=== PATIENT | female | born 1990 | race Caucasian/White ===

== ENCOUNTER → 2020-01-09 | Outpatient (CLI) | payer OTHER ==
[~2020-01-09] MED LIST: MOTRIN 800800 MG/TAB PO; PRENATAL VITAMI1 TA3 PO; ZOLOFT 50MG50 MG PO
== END ==
LOC: ZCOL.LAB 15:59
DX: J02.9 Acute pharyngitis, unspecified (principal); Z20.828 Contact with and (suspected) exposure to other viral communicable diseases

== ENCOUNTER 2020-01-28 14:25 | Inpatient (IN) | payer BC ==
[2020-01-28] VITALS (34 sets, daily range): BP systolic 101–144; BP diastolic 56–82; PULSE 77–130; TEMP 97.7–98.7
[~2020-01-28] VITALS: Ht 185.4 cm; Wt 101.8 kg
--- NOTE | 2020-01-28 14:30 | NUR ---
Pt arrives on unit ambulatory with spouse. States sweeping of membranes performed and has leaking fluid since 01/28/2020 with bloody show. Denies regular ctx and decreased FM. Changed into clean gown. EFM and toco applied. VSS. Amniotest inconclusive with bloody show noted. SVE per this RN /-2. Dr. Alston on unit. Orders for ROM. Admission asessment completed. Pt updated on POC. Bed locked in low position. Call light within reach. No questions or concerns at this time.
[2020-01-28] MEDS ORDERED: PRENATAL VITAMI1 TA3 PO (14:47)
[2020-01-28] MEDS ORDERED: ZOLOFT 50MG50 MG PO (14:47)
[2020-01-28 16:32] LABS: BASO % 0.3 % (0.0-2.0); EOS # 0.1 (0.0-0.7); EOS % 0.6 % (0-4.0); GRAN # 7.4 (1.4-6.5); GRAN % 73.3 % (42.2-75.2); HEMATOCRIT 37.9 % (37.0-47.0); HEMOGLOBIN 12.9 g/dl (12.5-16.0); LYMPH # 1.8 (1.2-3.4); LYMPH % 17.6 % (20.0-51.0); MEAN CELL VOLUME 91 fl (80.0-100.0); MEAN CORPUSCULAR HEMOGLOBIN 31 pg (27.0-31.0); MEAN CORPUSCULAR HGB CONC 34 g/dl (33.0-37.0); MEAN PLATELET VOLUME 11.1 fl (7.4-10.4); MONO # 0.8 (0.1-0.6); MONO % 7.9 % (1.7-9.3); PLATELET COUNT 221 K/mm3 (130-400); RED BLOOD COUNT 4.18 M/mm3 (4.10-5.30); REDCELL DISTRIBUTION WIDTH-CV 12.5 % (11.5-14.5)
--- NOTE | 2020-01-28 17:15 | NUR ---
1655: Patient up to bathroom, voids without difficulty. 1700: Patient returns to bed, sitting at edge of bed for epidural placement. Emil PATIENT DAY COORDINATOR at bedside. 1706: Lidocaine. Single Shot given by Emil BOCANEGRA, no adverse reaction noted. 1707: Epidural Catheter placed. 1715: Patient repositioned to left tilt with peanut ball in place. Will continue to monitor. Call light within reach.
--- NOTE | 2020-01-28 17:25 | NUR ---
Patient calls out stating she is still hurting with contractions. Patient pushes epidural button. Will continue to monitor. Call light within reach.
--- NOTE | 2020-01-28 23:00 | NUR ---
2203- RN to bedside, SVE complete and 0 station. Pt. begins practice pushing. RN remains at bedside. 2223- Provider notified that patient is ready for delivery. 2225- FHT noted to be in the 90s range. Maternal O2 saturation placed on and remains on. RN remains at bedside. All staff notified of FHT and delivery. 2226- Pitocin turned off and regalado taken out with 350 of clear yellow urine noted. 223- Alston to bedside. Pt. continues to push. 223- O2 placed on mom at 10L. 2234- of viable female . Nuchal cord x1 noted by provider. to warmer where nursery nurse assumes care. 2235- of placenta. Heavy bleeding noted by provider. Fundus continually massaged by provider and nurse, taking turns, because placenta was boggy. Pitocin started at 333ml/hr per protocol. 2237- VORB of Methergine and 800 mcg of cytotec now. 2238- Methergine IM given in left thigh by [email or web address]. Cytotec placed by provider. Fundus still boggy and continually massaged by provider and RN. 2247- VORB for Hemabate IM and 20 of pitocin added to existing bag, now 2248- Hemabate IM give in left thigh by [email or web address]. 20 of pit added to existing pitocin bag by [email or web address]. 2250- 2nd degree repair completed and fundus firming up with moderate amount of blood and several small clots noted. Pt. and room cleaned up. Ice pack and new chux pad to perineum. 2300- Recovery begins. Vitals taken, fundus firm with moderate amount of blood noted. Provider stated 1000 EBL for delivery.
[2020-01-29] VITALS (9 sets, daily range): BP systolic 101–113; BP diastolic 58–72; PULSE 80–115; TEMP 98.1–98.7
[2020-01-29 08:23] LABS: MEAN CELL VOLUME 92 fl (80.0-100.0); MEAN CORPUSCULAR HGB CONC 34 g/dl (33.0-37.0); MEAN PLATELET VOLUME 10.9 fl (7.4-10.4); PLATELET COUNT 203 K/mm3 (130-400); RED BLOOD COUNT 3.17 M/mm3 (4.10-5.30); REDCELL DISTRIBUTION WIDTH-CV 12.7 % (11.5-14.5)
[2020-01-29 08:31] LABS: HEMATOCRIT 29.3 % (37.0-47.0); MEAN CORPUSCULAR HEMOGLOBIN 31 pg (27.0-31.0)
[2020-01-29 08:33] LABS: HEMOGLOBIN 9.9 g/dl (12.5-16.0)
--- NOTE | 2020-01-29 09:15 | NUR ---
0915- Pt attempted to void, 25mls. Pt states she feels like she needs to void but cannot. Pt encouraged to drink and retry. Will need intervention of no void by 1000. Pt verbalizes understanding.
[2020-01-29 09:49] LABS: BAND 13 % (0-10); LYMPHOCYTE 11 % (20.0-51.0); NEUTROPHILS 71 % (42.0-75.2); PLATELET ESTIMATE NORMAL (NORMAL)
--- NOTE | 2020-01-29 10:30 | NUR ---
1030- Pt brought own pump and pumping supplies. Assisted with setup and guidelines for pumping. Pt instructed to call with questions.
[2020-01-30] MEDS ORDERED: MOTRIN 800800 MG/TAB PO (06:51)
[2020-01-30 08:30] VITALS: BP 98/51; PULSE 85; TEMP 97.9
--- NOTE | 2020-01-30 10:23 | NUR ---
Initial visit; Parents thanked Tire Retreader for offering congratulations and God's blessings for the of their daughter. Tire Retreader thanked family for choosing [facility].
--- NOTE | 2020-01-30 11:15 | NUR ---
Discharge information given and patient to boarder status. Patient agrees and understands plan of care. Signs papers and qustions answered.
== END 2020-01-30 11:15 | disposition home or self-care (01) | DRG 807 ==
LOC: LDRO 14:25 → LDR 14:30 → LDRO 15:14 → OB 15:15 → LDR 15:15 → OB 01-29 02:30
PROVIDERS: Obstetrics & Gynecology; ADMIT Obstetrics & Gynecology
PROC: 10E0XZZ Delivery of Products of Conception, External Approach (ICD-10-PCS; principal; 2020-01-28)
PROC: 0KQM0ZZ Repair Perineum Muscle, Open Approach (ICD-10-PCS; 2020-01-28)
PROC: 3E033VJ Introduction of Other Hormone into Peripheral Vein, Percutaneous Approach (ICD-10-PCS; 2020-01-28)
DX: O99.344 Other mental disorders complicating childbirth (principal); Z37.0 Single live birth; O62.2 Other uterine inertia; O70.1 Second degree perineal laceration during delivery; O69.81X0 Labor and delivery complicated by cord around neck, without compression, not applicable or unspecified; F41.9 Anxiety disorder, unspecified; Z3A.37 37 weeks gestation of pregnancy; Z88.5 Allergy status to narcotic agent
CPT/HCPCS: J0690; J2210; J2590; J2795; J7120

== ENCOUNTER 2022-10-09 18:08 | Outpatient (CLI) | payer BC ==
[~2022-10-09] VITALS: Ht 185.4 cm; Wt 98.6 kg
--- NOTE | 2022-10-09 18:15 | NUR ---
G2L1. 36.1. Ambualtory to LDR 4 with spouse. Clean gown on. EFM and TOCO explained and applied. Pt states she is unsure if she is having contractions or camryn ray. Pt also states she is unsure if her water broke. Pt explained her last labor and delivery process she was ruptured for 4 days prior to coming into L&D and it was a traumatizing to them so she just wanted to come and get things checked out. Pt denies vaginal bleeding and reports good movement. Plan of care explained to pt and spouse. 182: Amniotrace X2 negative. No fluid noted with exam. SVE 50/-3 and ballotable. 1835: at nurses station and reviews FHR strip. Update and pt's status given. See physican notification.
[2022-10-09] MEDS ORDERED: ZOLOFT 100MG100 MG PO (18:30)
[2022-10-09 19:00] VITALS: BP 112/58; PULSE 80
--- NOTE | 2022-10-09 19:32 | NUR ---
SVE unchanged. Pt off monitor to change. 1944: Discharge instructions given to pt and spouse who verbalize their understanding. Denies questions at this time. Pt ambulatory off unit and home with spouse.
== END 2022-10-09 19:45 | disposition home or self-care (01) ==
LOC: LDRO 18:08 → LDR 18:15 → LDRO 19:45
DX: Z34.90 Encounter for supervision of normal pregnancy, unspecified, unspecified trimester (principal); Z3A.00 Weeks of gestation of pregnancy not specified
CPT/HCPCS: OP

== ENCOUNTER 2022-10-28 06:30 | Inpatient (IN) | payer BC ==
[~2022-10-28] VITALS: Ht 185.4 cm; Wt 103.2 kg
[2022-10-28] VITALS (41 sets, daily range): BP systolic 91–143; BP diastolic 50–88; PULSE 76–111; TEMP 97.6–98.6
[~2022-10-28 06:30] MED LIST changes: +ZOLOFT 100MG100 MG PO
--- NOTE | 2022-10-28 06:40 | NUR ---
PT AMBULATORY TO LR5 WITH SPOUSE. CHANGED INTO CLEAN GOWN. FHR MONITOR/TOCO APPLIED. PT DENIES DECREASED MOVEMENT, REGULAR CONTRACTIONS, VAGINAL BLEEDING, OR LEAKING OF FLUID. PLAN OF CARE AND INDUCTION OF LABOR DISCUSSED. PT VERBALIZES UNDERSTANDING. PT ORIENTED TO ROOM. CALL LIGHT WITHIN REACH.
[2022-10-28 07:39] LABS: BASO % 0.4 % (0.0-2.0); EOS # 0.2 K/mm3 (0.0-0.7); EOS % 1.5 % (0.0-4.0); GRAN # 7.3 K/mm3 (1.4-6.5); GRAN % 70.2 % (42.2-75.2); HEMOGLOBIN 12.1 g/dl (12.5-16.0); LYMPH # 2.2 K/mm3 (1.2-3.4); LYMPH % 20.9 % (20.0-51.0); MEAN CELL VOLUME 91 fl (80.0-100.0); MEAN CORPUSCULAR HEMOGLOBIN 31 pg (27-31); MEAN CORPUSCULAR HGB CONC 34 g/dl (33.0-37.0); MEAN PLATELET VOLUME 10.5 fl (7.4-10.4); MONO # 0.7 K/mm3 (0.1-0.6); MONO % 6.6 % (1.7-9.3); PLATELET COUNT 244 K/mm3 (130-400); RED BLOOD COUNT 3.95 M/mm3 (4.10-5.30); REDCELL DISTRIBUTION WIDTH-CV 12.4 % (11.5-14.5)
[2022-10-28 07:44] LABS: HEMATOCRIT 35.8 % (37.0-47.0)
--- NOTE | 2022-10-28 07:56 | NUR ---
Dr Cuello called at this time. Notified this RN that he has a couple cases and then will be over to assess patient and AROM. Dr Cuello states "patient can have epidural whenever she wants."
--- NOTE | 2022-10-28 16:05 | NUR ---
DR DE LA FUENTE ON UNIT AND IN PATIENTS ROOM.
--- NOTE | 2022-10-28 17:00 | NUR ---
1605 DR DE LA FUENTE ON UNIT FOR DELIVERY 1642 SVE BY THIS RN /+2. 164 SRINIVASAN REMOVED. Sarah PERALTA RN, DR DE LA FUENTE, Remi WREN RN, AND Niraj KU RN IN ROOM FOR DELIVERY 1647 SPONTANEOUS VAGINAL DELIVERY OF VIABLE FEMALE INFANT. INFANT BULB SUCTIONED AND STIMULATED. CORD CLAMPED BY DR DE LA FUENTE. CUT BY FOB. S KATHRYN RN TAKES OVER CARE OF INFANT. INFANT TAKEN TO WARMER FOR ASSESSMENT. 1652 SPONTANEOUS DELIVERY OF PLACENTA. PITOCIN BOLUS STARTED PER PROTOCOL. METHERGINE GIVEN. FUNDAL MASSAGE DONE. PT FIRM/MIDLINE. SMALL AMT OF BLEEDING NOTED. PT REPOSITIONED. PERICARE DONE. CLEAN PAD PLACED. SAFETY PRECAUTIONS AND PLAN OF CARE DISCUSSED. PT VERBALIZES UNDERSTANDING.
--- NOTE | 2022-10-28 18:10 | NUR ---
REPORT RCVD FROM LEXIE AYOUB. THE PATIENT IS STILL IN LDR5 DURING VITALS. WILL CONTINUE TO MONITOR AND MOVE TO PP ROOM.
--- NOTE | 2022-10-28 23:10 | NUR ---
2245: PT AMBULATES TO THE BATHROOM FOR VOID ATTEMPT. SAT ON COMMODE FOR 15 MINUTES. 2300: INABILITY TO VOID AT THIS TIME BUT HAS AN INTERMITTENT STREAM UP TO 400ML IN HAT. DISCUSSION REGARDING INTERMITTENT CATHETERIZATION TO EMPTY BLADDER. PT AGREEABLE, HAD THE ABILITY TO VOID 200ML AT 2130 AND 400ML AT THIS TIME, BUT STILL FELT HER BLADDER WAS DISTENDED. 2310: INTERMITTENT CATHETERIZATION COMPLETED WITH 1300ML OUT. PT STATES SHE FEELS SO MUCH BETTER WITH AN EMPTY BLADDER.
[2022-10-29] VITALS: BP 98/46; PULSE 82; TEMP 98.5
[2022-10-29 04:00] VITALS: BP 98/58; PULSE 67; TEMP 97.7
[2022-10-29 08:07] VITALS: BP 106/57; PULSE 84; TEMP 98.1
--- NOTE | 2022-10-29 09:14 | NUR ---
Initial visit attempt; Patient indisposed, Water Treatment Technician left card offering congratulations and God's blessings for the of their daughter. Card also informed family of the availability of Spirit[facility] Care at [facility].
[2022-10-29 16:31] VITALS: BP 104/54; PULSE 80; TEMP 98.4
[2022-10-29 19:35] VITALS: BP 112/72; PULSE 91; TEMP 97.9
[2022-10-30] MEDS ORDERED: MOTRIN 800800 MG/TAB PO (07:46)
[2022-10-30 08:30] VITALS: BP 106/63; PULSE 80; TEMP 98.2
== END 2022-10-30 17:56 | disposition home or self-care (01) | DRG 807 ==
LOC: LDR 06:30 → OB 06:30
PROVIDERS: ADMIT Obstetrics & Gynecology
PROC: 10E0XZZ Delivery of Products of Conception, External Approach (ICD-10-PCS; principal; 2022-10-28)
PROC: 10907ZC Drainage of Amniotic Fluid, Therapeutic from Products of Conception, Via Natural or Artificial Opening (ICD-10-PCS; 2022-10-28)
PROC: 3E033VJ Introduction of Other Hormone into Peripheral Vein, Percutaneous Approach (ICD-10-PCS; 2022-10-28)
DX: O99.344 Other mental disorders complicating childbirth (principal); Z37.0 Single live birth; F41.9 Anxiety disorder, unspecified; O69.81X0 Labor and delivery complicated by cord around neck, without compression, not applicable or unspecified; Z3A.39 39 weeks gestation of pregnancy
CPT/HCPCS: J2590; J2795; J7120